=== PATIENT | male | born 2005 | race Caucasian/White ===

== ENCOUNTER 2025-01-05 08:00 | Emergency (ER) | payer OTHER | END 2025-01-05 09:04 | disposition home or self-care (01) | LOC: KA.ED 08:00 | DX: S82.831A Other fracture of upper and lower end of right fibula, initial encounter for closed fracture (principal); X50.9XXA Other and unspecified overexertion or strenuous movements or postures, initial encounter; Y99.0 Civilian activity done for income or pay | CPT/HCPCS: 29515; 73610-RT; 99283-25 ==